=== PATIENT | female | born 1995 | race Hispanic/Latino ===

== ENCOUNTER 2017-04-24 00:12 | Emergency (ER) | payer OTHER ==
[2017-04-24 00:34] VITALS: BMI 22.8
[2017-04-24 00:36] VITALS: BP 134/84; PULSE 71; RESP 16; TEMP 97.8; O2SAT 100
--- NOTE | 2017-04-24 01:07 | ED PDOC ---
HPI: Skin/Bite Injury Time Seen by Provider: 04/24/17 00:47 Chief Complaint (Nursing): Abnormal Skin Integrity Chief Complaint (Provider): rash History Per: Patient History/Exam Limitations: no limitations Onset/Duration Of Symptoms: Days (2) Current Symptoms Are (Timing): Still Present Quality Of Symptoms: Itching Additional History Per: Patient Additional Complaint(s): 22 y/o female presents with pruritic rash x 2 days. Patient states rash started on right hand, has since spread to upper extremities, and upper inner thighs. Patient has been applying calamine lotion with relief of symptoms. Denies fever, swelling, difficulty speaking/swallowing, chest pain, shortness of breath, palpitations, changes in bowel movements, sick contacts. Patient states she recently started using a new laundry detergent, otherwise denies known allergen. Past Medical History Reviewed: Historical Data, Nursing Documentation, Vital Signs Vital Signs: Last Vital Signs Temp 97.8 F 04/24/17 00:34 Pulse 71 04/24/17 00:34 Resp 16 04/24/17 00:34 BP 134/84 04/24/17 00:34 Pulse Ox 100 04/24/17 01:29 - Medical History PMH: No Chronic Diseases - Surgical History Surgical History: No Surg Hx - Family History Family History: States: No Known Family Hx - Living Arrangements Living Arrangements: With Family - Home Medications Home Medications: Ambulatory Orders Medication Instructions Recorded Cetirizine HCl [Zyrtec] 10 mg PO DAILY #5 capsule 04/24/17 Famotidine [Pepcid] 20 mg PO BID #8 tab 04/24/17 Prednisone 50 mg PO DAILY #4 tablet 04/24/17 - Allergies Allergies/Adverse Reactions: Allergies Allergy/AdvReac Type Severity Reaction Status Date / Time No Known Allergies Allergy Verified 04/24/17 00:34 Review of Systems ROS Statement: Except As Marked, All Systems Reviewed And Found Negative Skin: Positive for: Rash Physical Exam - Reviewed Nursing Documentation Reviewed: Yes Vital Signs Reviewed: Yes - Physical Exam Appears: Positive for: Well, Non-toxic, No Acute Distress Head Exam: Positive for: ATRAUMATIC, NORMAL INSPECTION, NORMOCEPHALIC Skin: Positive for: Rash (papular rash noted bilateral upper extremities, upper inner thigh's. No scaling, tisha pattern, vesicles, or sand paper appearance noted) ENT: Positive for: Normal ENT Inspection Cardiovascular/Chest: Positive for: Regular Rate, Rhythm Respiratory: Positive for: Normal Breath Sounds Gastrointestinal/Abdominal: Positive for: Normal Exam Extremity: Positive for: Normal ROM Neurologic/Psych: Positive for: Alert, Oriented - ECG O2 Sat by Pulse Oximetry: 100 - Progress ED Course And Treament: Patient educated on findings, discharged with rx pepcid, benadryl, prednisone. Advised follow up PMD 2-3 days. Return to ED for worsening/concerning symptoms. Disposition - Clinical Impression Clinical Impression: Rash - Patient ED Disposition Is Patient to be Admitted: No Counseled Patient/Family Regarding: Diagnosis, Need For Followup, Rx Given - Disposition Referrals: [facility] [Outside] Disposition: Routine/Home Disposition Time: 02:16 Condition: IMPROVED Prescriptions: Cetirizine HCl [Zyrtec] 10 mg PO DAILY #5 capsule Famotidine [Pepcid] 20 mg PO BID #8 tab Prednisone 50 mg PO DAILY #4 tablet Instructions: Acute Rash (ED) Forms: [employer] (Citizen Of [place])
== END 2017-04-24 02:30 | disposition home or self-care (01) ==
LOC: H.ER 00:12
DX: R21 Rash and other nonspecific skin eruption (principal)